=== PATIENT | male | born 1985 | race Caucasian/White ===

== ENCOUNTER 2018-09-07 12:36 | Emergency (ER) | payer OTHER ==
[~2018-09-07] VITALS: Ht 177.8 cm; Wt 86.4 kg
[2018-09-07 12:41] VITALS: BP 124/78; PULSE 69; TEMP 98.3
[2018-09-07] MEDS ORDERED: NEURONTIN300 MG/CAP PO (12:59)
[2018-09-07] MEDS ORDERED: ROBAXIN 50500 MG/TAB PO (12:59)
[2018-09-07] MEDS ORDERED: PROZAC60 MG PO (12:59)
== END 2018-09-07 13:21 | disposition home or self-care (01) ==
LOC: COL.ER 12:36
DX: M25.511 Pain in right shoulder (principal); F32.9 Major depressive disorder, single episode, unspecified; F41.9 Anxiety disorder, unspecified; F17.220 Nicotine dependence, chewing tobacco, uncomplicated; Z88.2 Allergy status to sulfonamides

== ENCOUNTER → 2021-04-15 | Outpatient (CLI) | payer OTHER ==
[~2021-04-15] MED LIST: NEURONTIN300 MG/CAP PO; PROZAC60 MG PO; ROBAXIN 50500 MG/TAB PO
== END ==
LOC: COL.RAD 04-13 08:00
DX: K21.9 Gastro-esophageal reflux disease without esophagitis (principal)
CPT/HCPCS: A9541